=== PATIENT | female | born 1950 | race Caucasian/White ===

== ENCOUNTER 2018-03-21 11:31 | Emergency (ER) | payer OTHER, BC ==
[2018-03-21 12:42] LABS: Absolute Lymphocytes (CBC) 1.9 K/uL (0.7-4.9); Absolute Monocytes 0.6 K/uL (0.1-1.3); Absolute Neutrophil 5.1 K/uL (1.8-8.0); Basophils % 1.1 % (0-1.3); Eosinophils % 2.3 % (0-4.4); Hematocrit 34.2 % (36.0-45.0); Lymphocytes % 24.5 % (15.3-44.8); MCH 28.6 pg (27.0-35.0); MPV 8.5 fL (7.6-11.3); Monocytes % 7.4 % (3.3-12.3); RBC Red Blood Cell Count 4.08 M/uL (3.86-4.86)
[2018-03-21 12:43] LABS: Urine Blood NEGATIVE (NEG); Urine Glucose NEGATIVE (NEG); Urine Protein NEGATIVE (NEG); Urine pH 6.5 (5.0-7.0)
[2018-03-21 12:46] LABS: Protime INR 0.97
[2018-03-21 13:09] LABS: ALT/SGPT 14 U/L (12-78); AST/SGOT 9 U/L (15-37); Albumin 3.2 g/dL (3.4-5.0); Alkaline Phosphatase 67 U/L (45-117); BUN Blood Urea Nitrogen 22 mg/dL (7-18); Bicarbonate 26 mmol/L (21-32); Bilirubin Direct 0.1 mg/dL (0-0.2); Bilirubin Total 0.4 mg/dL (0.2-1.0); CKMB Creatine Kinase MB < 1.0 ng/mL (0.3-3.6); Creatine Phosphokinase 41 U/L (26-192); Glucose Level 116 mg/dL (74-106); Magnesium 1.8 mg/dL (1.8-2.4); NT PRO-BNP 562 pg/mL (<125); Potassium 3.4 mmol/L (3.5-5.1); Protein, Total 6.3 g/dL (6.4-8.2); Sodium Level 141 mmol/L (136-145)
--- NOTE | 2018-03-21 14:04 | RAD REPORT ---
EXAM DESCRIPTION: VAS - Extrem Venous W Compress Gigi - 03/21/2018 1:35 pm CLINICAL HISTORY: Bilateral lower extremity pain COMPARISON: None. TECHNIQUE: Real-time sonographic evaluation of the bilateral lower extremity deep venous systems was performed. FINDINGS: Normal compressibility, flow augmentation, phasic flow and spontaneous flow are identified in the bilateral lower extremity common femoral, superficial femoral, popliteal and posterior tibial veins. No intraluminal filling defects seen. A 3 centimeter x 2.4 centimeter popliteal fossa cyst no radha on the left. IMPRESSION: No DVT in either lower extremity. Left popliteal fossa cyst 3 cm in size.
--- NOTE | 2018-03-21 14:05 | RAD REPORT ---
EXAM DESCRIPTION: RAD - Chest Single View - 03/21/2018 1:12 pm CLINICAL HISTORY: Chest pain and pressure, shortness of breath COMPARISON: None. TECHNIQUE: AP portable chest image was obtained 1309 hours . FINDINGS: Lungs are clear. Heart and vasculature are normal. No measurable pleural effusion and no p neumothorax. No gross bony abnormality seen. No acute aortic findings suspected. IMPRESSION: No acute cardiopulmonary process.
[2018-03-21] MEDS ORDERED: ONDANSETRON 4 MG/2 ML VIAL ONE (14:14)
[2018-03-21] MEDS ORDERED: MORPHINE 4 MG/ML SYR ONE (14:14)
--- NOTE | 2018-03-21 15:15 | EKG ---
Test Date: 2018-03-21 Test Time: 12:15:22 Material Controller: EAMON MEASUREMENT RESULTS: Intervals: Rate: 76 WA: 196 QRSD: 80 QT: 402 QTc: 452 Benton: P: 34 WA: 196 QRS: 67 T: 72 INTERPRETIVE STATEMENTS: Normal sinus rhythm Nonspecific ST abnormality Abnormal ECG No previous ECG available for comparison Electronically Signed On 03-21-18 15:14:23 CDT by Blake Vizcarra
--- NOTE | 2018-03-21 16:25 | ER ---
Nurse's Notes [facility] Name: Jami Chow Age: 67 yrs Sex: Female : 1950 Arrival Date: 03/21/2018 Time: 11:32 Bed 19 Private MD: Out, [facility] Diagnosis: Chest pain, unspecified;Edema, unspecified Presentation: 03/21 11:37 Presenting complaint: Patient states: Swelling to her feet since yesterday, patient aj1 states that she has never had problems with her feet swelling in the past. Reports feeling pressure in her chest. Denies SOB. Denies palpitations, dizziness. She checked her blood pressure at home and it was higher than usual for her. She is also complaining of joint pain all over her body. Transition of care: patient was not received from another setting of care. Onset of symptoms was March 20, 2018. Risk Assessment: Do you want to hurt yourself or someone else? Patient reports no desire to harm self or others. Initial Sepsis Screen: Does the patient meet any 2 criteria? No. Patient's initial sepsis screen is negative. Does the patient have a suspected source of infection? No. Patient's initial sepsis screen is negative. Care prior to arrival: None. 11:37 Method Of Arrival: Ambulatory aj1 11:37 Acuity: ALLYSSA 3 aj1 Triage Assessment: 11:42 General: Appears in no apparent distress. comfortable, Behavior is calm, cooperative, aj1 appropriate for age. Pain: Complains of pain in chest Pain does not radiate. Pain currently is 4 out of 10 on a pain scale. Quality of pain is described as pressure. Neuro: Level of Consciousness is awake, alert, obeys commands. Cardiovascular: Reports chest pain, Patient's skin is warm and dry. Respiratory: Airway is patent Respiratory effort is even, unlabored, Respiratory pattern is regular, symmetrical. 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 - Social history:: Smoking status: Patient/guardian denies using tobacco. - Ebola Screening: : Patient denies travel to an Ebola-affected area in the 21 days before illness onset. Screenin:31 Abuse screen: Denies threats or abuse. Nutritional screening: No deficits noted. em Tuberculosis screening: No symptoms or risk factors identified. Fall Risk None identified. Assessment: 12:00 General: Appears in no apparent distress. comfortable, Behavior is cooperative, em anxious. Pain: Complains of pain in chest Pain currently is 3 out of 10 on a pain scale. Neuro: Level of Consciousness is awake, alert, obeys commands, Oriented to person, place, time, situation. Cardiovascular: Reports chest pain, nausea, shortness of breath, Heart tones S1 S2 present Capillary refill < 3 seconds Patient's skin is warm and dry. Rhythm is regular. Respiratory: Airway is patent Respiratory effort is even, unlabored, Respiratory pattern is regular, symmetrical. GI: Abdomen is round non-distended, Reports nausea. : No signs and/or symptoms were reported regarding the genitourinary system. EENT: No signs and/or symptoms were reported regarding the EENT system. Derm: Skin is intact, Skin is pink, warm \T\ dry. Musculoskeletal: Range of motion: intact in all extremities. 12:05 Reassessment: I agree with previous assessment. 13:05 Reassessment: Patient appears in no apparent distress at this time. Patient and/or em family updated on plan of care and expected duration. Pain level reassessed. Patient is alert, oriented x 3, equal unlabored respirations, skin warm/dry/pink. 14:00 Reassessment: Patient appears in no apparent distress at this time. Patient and/or em family updated on plan of care and expected duration. Pain level reassessed. Patient is alert, oriented x 3, equal unlabored respirations, skin warm/dry/pink. Patient states feeling better. 15:07 Reassessment: Patient appears in no apparent distress at this time. Patient and/or em family updated on plan of care and expected duration. Pain level reassessed. Patient is alert, oriented x 3, equal unlabored respirations, skin warm/dry/pink. Patient states feeling better. Patient states symptoms have improved. 16:24 Reassessment: Patient appears in no apparent distress at this time. Patient and/or em family updated on plan of care and expected duration. Pain level reassessed. Patient is alert, oriented x 3, equal unlabored respirations, skin warm/dry/pink. currently denies CP, N/V Patient states symptoms have improved. Vital Signs: 11:42 BP 146 / 88; Pulse 87; Resp 18; Temp 98.3(O); Pulse Ox 97% on R/A; Weight 68.04 kg (R); aj1 Height 5 ft. 6 in. (167.64 cm) (R); Pain 3/10; 12:34 BP 122 / 64; Pulse 73; Resp 18; Pulse Ox 98% on R/A; Pain 2/10; em 14:01 BP 146 / 68; Pulse 68; Resp 18; Pulse Ox 98% on R/A; Pain 3/10; em 15:00 BP 138 / 67; Pulse 71; Resp 18; Pulse Ox 97% on R/A; Pain 0/10; em 16:00 BP 144 / 71; Pulse 71; Resp 17; Pulse Ox 99% on R/A; em 16:43 BP 140 / 68; Pulse 67; Resp 19; Pulse Ox 99% on R/A; Pain 0/10; em 11:42 Body Mass Index 24.21 (68.04 kg, 167.64 cm) aj1 ED Course: 11:32 Patient arrived in ED. sb2 11:33 Out, [facility] is Private Physician. sb2 11:40 Triage completed. aj1 11:42 Arm band placed on Patient placed in an exam room. aj1 11:45 John Laguna LVN is Primary Nurse. em 11:46 Vick Menendez NP is PHCP. pm1 11:46 Nicko Sorenson MD is Attending Physician. pm1 12:30 Initial lab(s) drawn, by me, sent to lab. Inserted saline lock: 20 gauge in right em forearm, using aseptic technique. Blood collected. 12:31 Patient has correct armband on for positive identification. Bed in low position. Call em light in reach. 12:31 No provider procedures requiring assistance completed. em 13:12 XRAY Chest (1 view) In Process Unspecified. EDMS 13:35 Extrem Venous W Compression Gigi US In Process Unspecified. EDMS 13:35 Ultrasound completed. Patient tolerated well. sg3 16:43 IV discontinued, intact, bleeding controlled, No redness/swelling at site. Pressure em dressing applied. Administered Medications: 14:16 Drug: morphine 4 mg Route: IVP; Site: right forearm; hb 15:00 Follow up: Response: No adverse reaction; Pain is decreased em 14:16 Drug: Zofran 4 mg Route: IVP; Site: right forearm; hb 15:56 Follow up: Response: No adverse reaction; Nausea is decreased em Outcome: 16:24 Discharge ordered by MD. pm1 16:43 Discharged to home ambulatory. em 16:43 Condition: good 16:43 Discharge instructions given to patient, Instructed on discharge instructions, follow up and referral plans. Demonstrated understanding of instructions, follow-up care. 16:52 Patient left the ED. em Signatures: Dispatcher [employer] Debora Vee RN RN aj1 John Laguna, SUPERVISOR PIPE MANUFACTURE SUPERVISOR PIPE MANUFACTURE em Vick Menendez, GRID OPERATOR GRID OPERATOR pm1 Kandis Acosta RN RN Tatiana Donahue sg3 Angela Sanchez sb2
--- NOTE | 2018-03-21 16:25 | EDPHYS ---
Physician Documentation [facility] Name: Jami hCow Age: 67 yrs Sex: Female : 1950 Arrival Date: 03/21/2018 Time: 11:32 Bed 19 Private MD: Out, [facility] ED Physician Nicko Sorenson HPI: 03/21 13:00 This 67 yrs old Female presents to ER via Ambulatory with complaints of Blood pm1 Pressure Problem. 13:00 The patient or guardian reports chest pain that is located primarily in the mid-sternal pm1 area. Onset: yesterday. The pain does not radiate. Associated signs and symptoms: Pertinent negatives: abdominal pain, cough, nausea, shortness of breath, vomiting. The chest pain is described as sharp. Duration: The patient or guardian reports a single episode, that is now resolved. Modifying factors: The symptoms are alleviated by nothing. the symptoms are aggravated by nothing. Severity of pain: in the emergency department the pain chest pain is resolved but patient has chronic pain from fibromyalgia. The patient has not recently seen a physician. 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 - Social history:: Smoking status: Patient/guardian denies using tobacco. - Ebola Screening: : Patient denies travel to an Ebola-affected area in the 21 days before illness onset. ROS: 13:00 Constitutional: Negative for fever, chills, and weight loss, Eyes: Negative for injury, pm1 pain, redness, and discharge, ENT: Negative for injury, pain, and discharge, Neck: Negative for injury, pain, and swelling. 13:00 Respiratory: Negative for shortness of breath, cough, wheezing, and pleuritic chest pain, Abdomen/GI: Negative for abdominal pain, nausea, vomiting, diarrhea, and constipation, Back: Negative for injury and pain, : Negative for injury, bleeding, discharge, and swelling, MS/Extremity: Negative for injury and deformity, Skin: Negative for injury, rash, and discoloration, Neuro: Negative for headache, weakness, numbness, tingling, and seizure. 13:00 Cardiovascular: Positive for chest pain, Negative for edema, orthopnea, palpitations, paroxysmal nocturnal dyspnea. Exam: 13:00 Constitutional: This is a well developed, well nourished patient who is awake, alert, pm1 and in no acute distress. Head/Face: Normocephalic, atraumatic. Eyes: Pupils equal round and reactive to light, extra-ocular motions intact. Lids and lashes normal. Conjunctiva and sclera are non-icteric and not injected. Cornea within normal limits. Periorbital areas with no swelling, redness, or edema. ENT: Nares patent. No nasal discharge, no septal abnormalities noted. Tympanic membranes are normal and external auditory canals are clear. Oropharynx with no redness, swelling, or masses, exudates, or evidence of obstruction, uvula midline. Mucous membranes moist. Neck: Trachea midline, no thyromegaly or masses palpated, and no cervical lymphadenopathy. Supple, full range of motion without nuchal rigidity, or vertebral point tenderness. No Meningismus. 13:00 Cardiovascular: Regular rate and rhythm with a normal S1 and S2. No gallops, murmurs, or rubs. Normal PMI, no JVD. No pulse deficits. Respiratory: Lungs have equal breath sounds bilaterally, clear to auscultation and percussion. No rales, rhonchi or wheezes noted. No increased work of breathing, no retractions or nasal flaring. Abdomen/GI: Soft, non-tender, with normal bowel sounds. No distension or tympany. No guarding or rebound. No evidence of tenderness throughout. Back: No spinal tenderness. No costovertebral tenderness. Full range of motion. Skin: Warm, dry with normal turgor. Normal color with no rashes, no lesions, and no evidence of cellulitis. MS/ Extremity: Pulses equal, no cyanosis. Neurovascular intact. Full, normal range of motion. 13:00 Chest/axilla: Inspection: normal, Palpation: crepitus, is not appreciated, tenderness, of the mid-sternal area, that totally reproduces the patient's complaints. 13:00 Neuro: Orientation: is normal, Motor: is normal, moves all fours. Vital Signs: 11:42 BP 146 / 88; Pulse 87; Resp 18; Temp 98.3(O); Pulse Ox 97% on R/A; Weight 68.04 kg (R); aj1 Height 5 ft. 6 in. (167.64 cm) (R); Pain 3/10; 12:34 BP 122 / 64; Pulse 73; Resp 18; Pulse Ox 98% on R/A; Pain 2/10; em 14:01 BP 146 / 68; Pulse 68; Resp 18; Pulse Ox 98% on R/A; Pain 3/10; em 15:00 BP 138 / 67; Pulse 71; Resp 18; Pulse Ox 97% on R/A; Pain 0/10; em 16:00 BP 144 / 71; Pulse 71; Resp 17; Pulse Ox 99% on R/A; em 16:43 BP 140 / 68; Pulse 67; Resp 19; Pulse Ox 99% on R/A; Pain 0/10; em 11:42 Body Mass Index 24.21 (68.04 kg, 167.64 cm) aj1 MDM: 11:46 Patient medically screened. pm1 16:19 Data reviewed: vital signs. Data interpreted: Pulse oximetry: on room air is 98 %. pm1 Interpretation: normal. Counseling: I had a detailed discussion with the patient and/or guardian regarding: the historical points, exam findings, and any diagnostic results supporting the discharge/admit diagnosis, lab results, radiology results, the need for outpatient follow up, to return to the emergency department if symptoms worsen or persist or if there are any questions or concerns that arise at home. 16:21 ED course: heart score = 2 due to age. ED course: Patient chest pain free with onset of pm1 chest pain yesterday. 2 negative troponin greater than 4 hours apart. Heart score = 2 due to age. Will discharge patient home to follow up with PCP. 03/21 12:04 Order name: Basic Metabolic Panel; Complete Time: 13:09 pm1 03/21 12:04 Order name: CBC with Diff; Complete Time: 13:09 pm1 03/21 12:04 Order name: Ckmb; Complete Time: 13: pm1 03/21 12:04 Order name: CPK; Complete Time: 13: pm1 03/21 12:04 Order name: LFT's; Complete Time: 13:09 pm1 03/21 12:04 Order name: Magnesium; Complete Time: 13:09 pm1 03/21 12:04 Order name: NT PRO-BNP; Complete Time: 13:09 pm1 03/21 12:04 Order name: PT-INR; Complete Time: 13:09 pm1 03/21 12:04 Order name: Ptt, Activated; Complete Time: 13:09 pm1 03/21 12:04 Order name: Troponin (emerg Dept Use Only); Complete Time: 13:09 pm1 03/21 12:04 Order name: XRAY Chest (1 view); Complete Time: 14:06 pm1 03/21 12:05 Order name: Extrem Venous W Compression Gigi US; Complete Time: 14:05 pm1 03/21 12:07 Order name: Urine Dipstick--Ancillary (enter results); Complete Time: 13:09 eb 03/21 15:29 Order name: Troponin (emerg Dept Use Only); Complete Time: 16:18 pm1 03/21 12:04 Order name: EKG; Complete Time: 12:04 pm1 03/21 12:04 Order name: Cardiac monitoring; Complete Time: 12:33 pm1 03/21 12:04 Order name: EKG - Nurse/Tech; Complete Time: 12:33 pm1 03/21 12:04 Order name: IV Saline Lock; Complete Time: 12:33 pm1 03/21 12:04 Order name: Labs collected and sent; Complete Time: 12:33 pm1 03/21 12:04 Order name: O2 Per Protocol; Complete Time: 12:33 pm1 03/21 12:04 Order name: O2 Sat Monitoring; Complete Time: 12:33 pm1 03/21 12:04 Order name: Urine Dipstick-Ancillary (obtain specimen); Complete Time: 12:33 pm1 Administered Medications: 14:16 Drug: morphine 4 mg Route: IVP; Site: right forearm; hb 15:00 Follow up: Response: No adverse reaction; Pain is decreased em 14:16 Drug: Zofran 4 mg Route: IVP; Site: right forearm; hb 15:56 Follow up: Response: No adverse reaction; Nausea is decreased em Disposition: 17:54 Co-signature as Attending Physician, Nicko Sorenson MD. rn Disposition: 03/21/18 16:24 Discharged to Home. Impression: Chest pain, unspecified, Edema, unspecified. - Condition is Stable. - Discharge Instructions: Nonspecific Chest Pain, Edema. - Medication Reconciliation Form, Thank You Letter form. - Follow up: Emergency Department; When: As needed; Reason: Worsening of condition. Follow up: Private Physician; When: 2 - 3 days; Reason: Recheck today's complaints, Continuance of care, Re-evaluation by your physician. - Problem is new. - Symptoms have improved. Signatures: Dispatcher [employer] EDMS Debora Anderson RN RN aj1 John Laguna, DRY CELL BATTERY ASSEMBLER DRY CELL BATTERY ASSEMBLER em Nicko Sorenson MD MD rn Vick Menendez, COMBAT SYSTEMS OPERATOR [employer] COMBAT SYSTEMS OPERATOR [employer] pm1 Kandis Acosta RN RN Corrections: (The following items were deleted from the chart) 16:52 16:24 03/21/2018 16:24 Discharged to Home. Impression: Chest pain, unspecified; Edema, em unspecified. Condition is Stable. Forms are Medication Reconciliation Form, Thank You Letter, Antibiotic Education, Prescription Opioid Use. Follow up: Emergency Department; When: As needed; Reason: Worsening of condition. Follow up: Private Physician; When: 2 - 3 days; Reason: Recheck today's complaints, Continuance of care, Re-evaluation by your physician. Problem is new. Symptoms have improved. pm1
== END 2018-03-21 16:52 | disposition home or self-care (01) ==
LOC: ER 11:31
DX: R60.9 Edema, unspecified (principal); I10 Essential (primary) hypertension; E78.5 Hyperlipidemia, unspecified; M79.7 Fibromyalgia; Z79.82 Long term (current) use of aspirin
CPT/HCPCS: 36415; 71045; 80048; 80076; 81003; 82550; 82553; 83735; 83880; 84484 ×2; 85025; 85610; 85730; 93005; 93970; J2405; 96374; 96375; 99284

== ENCOUNTER 2018-06-13 09:43 | Emergency (ER) | payer OTHER, BC ==
[2018-06-13] MEDS ORDERED: METHYLPREDNISOLONE 125 MG INJ ONE (10:40)
[2018-06-13] MEDS ORDERED: MORPHINE 4 MG/ML SYR ONE (10:40)
[2018-06-13] MEDS ORDERED: FAMOTIDINE 20 MG/2 ML VIAL IV ONE (10:40)
[2018-06-13] MEDS ORDERED: ONDANSETRON 4 MG/2 ML VIAL ONE (10:40)
--- NOTE | 2018-06-13 12:09 | ER ---
Nurse's Notes [facility] Name: Jami Chow Age: 68 yrs Sex: Female : 1950 Arrival Date: 06/13/2018 Time: 09:45 Bed 5 Private MD: Diagnosis: Aarthralgias Presentation: 06/13 09:50 Presenting complaint: Patient states: Fibromyalgia flare up x 3 days that has gotten ss worse. Pt states, "I just don't want it to get to a full blown fare up". Pt c/o pain "all over", mostly in joints. Transition of care: patient was not received from another setting of care. Onset of symptoms was June 10, 2018. Risk Assessment: Do you want to hurt yourself or someone else? Patient reports no desire to harm self or others. Initial Sepsis Screen: Does the patient meet any 2 criteria? No. Patient's initial sepsis screen is negative. Does the patient have a suspected source of infection? No. Patient's initial sepsis screen is negative. Care prior to arrival: None. 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 - Social history:: Smoking status: Patient/guardian denies using tobacco. - Ebola Screening: : Patient denies exposure to infectious person Patient denies travel to an Ebola-affected area in the 21 days before illness onset. Screenin:06 Abuse screen: Denies threats or abuse. Nutritional screening: No deficits noted. tw2 Tuberculosis screening: No symptoms or risk factors identified. Fall Risk None identified. Assessment: 10:06 General: Appears in no apparent distress. uncomfortable, Behavior is calm, cooperative, tw2 appropriate for age. Pain: Complains of pain in "all over". Neuro: Level of Consciousness is awake, alert, obeys commands, Oriented to person, place, time, situation. Cardiovascular: Denies chest pain, syncope, Patient's skin is warm and dry. Respiratory: Airway is patent Respiratory effort is even, unlabored, Respiratory pattern is regular, symmetrical. GI: No signs and/or symptoms were reported involving the gastrointestinal system. : No signs and/or symptoms were reported regarding the genitourinary system. EENT: No signs and/or symptoms were reported regarding the EENT system. Derm: No signs and/or symptoms reported regarding the dermatologic system. Musculoskeletal: Circulation, motion, and sensation intact. Range of motion: intact in all extremities, Reports pain in "all over". 11:15 Reassessment: Patient appears in no apparent distress at this time. Patient and/or ph family updated on plan of care and expected duration. Pain level reassessed. Patient is alert, oriented x 3, equal unlabored respirations, skin warm/dry/pink. Pt resting quietly, reports pain has decreased to 6/10, VSS, will continue to monitor. 12:40 Reassessment: Patient appears in no apparent distress at this time. Patient and/or tw2 family updated on plan of care and expected duration. Pain level reassessed. Patient is alert, oriented x 3, equal unlabored respirations, skin warm/dry/pink. Vital Signs: 09:52 BP 137 / 85; Pulse 78; Resp 15; Temp 97.1(TE); Pulse Ox 98% on R/A; Weight 71.67 kg; ss Height 5 ft. 6 in. (167.64 cm); Pain 8/10; 11:20 BP 116 / 68; Pulse 64; Resp 16; Pulse Ox 95% ; Pain 6/10; ph 12:43 BP 126 / 72; Pulse 76; Resp 14; Pulse Ox 97% on R/A; Pain 0/10; ss 09:52 Body Mass Index 25.50 (71.67 kg, 167.64 cm) ED Course: 09:45 Patient arrived in ED. as 09:46 Bed in low position. tw2 09:48 Tony Jordan MD is Attending Physician. kdr 09:51 Triage completed. ss 09:52 Arm band placed on left wrist. ss 10:05 Mireille Danielson RN is Primary Nurse. tw2 10:50 Inserted saline lock: 22 gauge in right forearm, using aseptic technique. ph 12:42 No provider procedures requiring assistance completed. IV discontinued, intact, ss bleeding controlled, No redness/swelling at site. Pressure dressing applied. Administered Medications: 10:52 Drug: morphine 4 mg Route: IVP; Site: right forearm; ph 12:43 Follow up: Response: No adverse reaction; Pain is decreased ss 10:52 Drug: Zofran 4 mg Route: IVP; Site: right forearm; ph 12:43 Follow up: Response: No adverse reaction; Nausea is decreased ss 10:52 Drug: SOLU-Medrol 125 mg Route: IVP; Site: right forearm; ph 12:43 Follow up: Response: No adverse reaction; Pain is decreased ss 10:52 Drug: Pepcid 20 mg Route: IVP; Site: right forearm; ph 12:43 Follow up: Response: No adverse reaction ss Outcome: 12:08 Discharge ordered by . kdr 12:42 Discharged to home ambulatory. ss 12:42 Discharged to pt is awaiting for her ride in [email or web address] 12:42 Condition: good 12:42 Discharge instructions given to patient, Instructed on discharge instructions, follow up and referral plans. medication usage, Demonstrated understanding of instructions, follow-up care, medications, Prescriptions given X 1. 12:43 Patient left the ED. Signatures: Tony Jordan MD MD kdr Andra Goodwin Shelby, RN RN Elisa Reid RN RN Mireille Danielson RN RN tw2 Corrections: (The following items were deleted from the chart) 11:19 10:52 Pepcid 20 mg IVP in right antecubital ph ph 11:19 10:52 SOLU-Medrol 125 mg IVP in right antecubital ph ph 11:19 10:52 Zofran 4 mg IVP in right antecubital ph ph 11:20 10:52 morphine 4 mg IVP in right antecubital ph ph
--- NOTE | 2018-06-13 12:09 | EDPHYS ---
Physician Documentation [facility] Name: Jami Chow Age: 68 yrs Sex: Female : 1950 Arrival Date: 06/13/2018 Time: 09:45 Bed 5 Private MD: ED Physician Tony Jordan HPI: 06/13 10:19 This 68 yrs old Female presents to ER via Ambulatory with complaints of kdr Fibromyalgia. 10:19 The patient states that she was sweeping the floor yesterday and today she is hurting kdr all over in all of her joints including her back. Onset: The symptoms/episode began/occurred gradually, this morning. Severity of symptoms: At their worst the symptoms were moderate in the emergency department the symptoms are unchanged. The patient has experienced similar episodes in the past, a few times. The patient has not recently seen a physician. 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 - Social history:: Smoking status: Patient/guardian denies using tobacco. - Ebola Screening: : Patient denies exposure to infectious person Patient denies travel to an Ebola-affected area in the 21 days before illness onset. ROS: 10:19 Constitutional: Negative for fever, chills, and weight loss, Eyes: Negative for injury, kdr pain, redness, and discharge, ENT: Negative for injury, pain, and discharge, Neck: Negative for injury, pain, and swelling, Cardiovascular: Negative for chest pain, palpitations, and edema, Respiratory: Negative for shortness of breath, cough, wheezing, and pleuritic chest pain, Abdomen/GI: Negative for abdominal pain, nausea, vomiting, diarrhea, and constipation, : Negative for injury, bleeding, discharge, and swelling, Skin: Negative for injury, rash, and discoloration, Neuro: Negative for headache, weakness, numbness, tingling, and seizure activity. Psych: Negative for depression, anxiety, suicide ideation, homicidal ideation, and hallucinations, Allergy/Immunology: Negative for hives, rash, and allergies, Endocrine: Negative for neck swelling, polydipsia, polyuria, polyphagia, and marked weight changes, Hematologic/Lymphatic: Negative for swollen nodes, abnormal bleeding, and unusual bruising. 10:19 Back: Positive for Exam: 10:52 Constitutional: This is a well developed, well nourished patient who is awake, alert, kdr and in no acute distress. Head/Face: Normocephalic, atraumatic. Eyes: Pupils equal round and reactive to light, extra-ocular motions intact. Lids and lashes normal. Conjunctiva and sclera are non-icteric and not injected. Cornea within normal limits. Periorbital areas with no swelling, redness, or edema. Neck: Trachea midline, no thyromegaly or masses palpated, and no cervical lymphadenopathy. Supple, full range of motion without nuchal rigidity, or vertebral point tenderness. No Meningismus. Chest/axilla: Normal chest wall appearance and motion. Nontender with no deformity. No lesions are appreciated. Cardiovascular: Regular rate and rhythm with a normal S1 and S2. No gallops, murmurs, or rubs. Normal PMI, no JVD. No pulse deficits. Respiratory: Lungs have equal breath sounds bilaterally, clear to auscultation and percussion. No rales, rhonchi or wheezes noted. No increased work of breathing, no retractions or nasal flaring. Abdomen/GI: Soft, non-tender, with normal bowel sounds. No distension or tympany. No guarding or rebound. No evidence of tenderness throughout. Back: No spinal tenderness. No costovertebral tenderness. Full range of motion. Skin: Warm, dry with normal turgor. Normal color with no rashes, no lesions, and no evidence of cellulitis. MS/ Extremity: Pulses equal, no cyanosis. Neurovascular intact. Full, normal range of motion but painful joint globally Neuro: Awake and alert, GCS 15, oriented to person, place, time, and situation. Cranial nerves II-XII grossly intact. Motor strength 5/5 in all extremities. Sensory grossly intact. Cerebellar exam normal. Normal gait. Psych: Awake, alert, with orientation to person, place and time. Behavior, mood, and affect are within normal limits. Vital Signs: 09:52 BP 137 / 85; Pulse 78; Resp 15; Temp 97.1(TE); Pulse Ox 98% on R/A; Weight 71.67 kg; ss Height 5 ft. 6 in. (167.64 cm); Pain 8/10; 11:20 BP 116 / 68; Pulse 64; Resp 16; Pulse Ox 95% ; Pain 6/10; ph 12:43 BP 126 / 72; Pulse 76; Resp 14; Pulse Ox 97% on R/A; Pain 0/10; ss 09:52 Body Mass Index 25.50 (71.67 kg, 167.64 cm) ss MDM: 12:08 Patient medically screened. kdr 14:50 Data reviewed: vital signs, nurses notes, lab test result(s). Counseling: I had a kdr detailed discussion with the patient and/or guardian regarding: the historical points, exam findings, and any diagnostic results supporting the discharge/admit diagnosis, the need for outpatient follow up. Administered Medications: 10:52 Drug: morphine 4 mg Route: IVP; Site: right forearm; ph 12:43 Follow up: Response: No adverse reaction; Pain is decreased ss 10:52 Drug: Zofran 4 mg Route: IVP; Site: right forearm; ph 12:43 Follow up: Response: No adverse reaction; Nausea is decreased ss 10:52 Drug: SOLU-Medrol 125 mg Route: IVP; Site: right forearm; ph 12:43 Follow up: Response: No adverse reaction; Pain is decreased ss 10:52 Drug: Pepcid 20 mg Route: IVP; Site: right forearm; ph 12:43 Follow up: Response: No adverse reaction ss Disposition: 06/13/18 12:08 Discharged to Home. Impression: Aarthralgias. - Condition is Stable. - Discharge Instructions: Joint Pain, [id number]. - Prescriptions for Tylenol- Codeine #3 300-30 mg Oral Tablet - take 2 tablets by ORAL route every 4-6 hours As needed; 12 tablet. - Medication Reconciliation Form, Thank You Letter, Prescription Opioid Use form. - Follow up: Private Physician; When: 2 - 3 days; Reason: If symptoms return, Further diagnostic work-up, Recheck today's complaints, Continuance of care, Re-evaluation by your physician. - Problem is new. - Symptoms have improved. Signatures: Tony Jordan MD MD kdr Nika Mcallister RN RN ss Elisa Reid, RN RN Mireille Danielson RN RN tw2 Corrections: (The following items were deleted from the chart) 12:43 12:08 06/13/2018 12:08 Discharged to Home. Impression: Aarthralgias. Condition is ss Stable. Forms are Medication Reconciliation Form, Thank You Letter, Antibiotic Education, Prescription Opioid Use. Follow up: Private Physician; When: 2 - 3 days; Reason: If symptoms return, Further diagnostic work-up, Recheck today's complaints, Continuance of care, Re-evaluation by your physician. Problem is new. Symptoms have improved. kdr
== END 2018-06-13 12:43 | disposition home or self-care (01) ==
LOC: ER 09:43
DX: M25.50 Pain in unspecified joint (principal); I10 Essential (primary) hypertension; E78.5 Hyperlipidemia, unspecified; Z79.82 Long term (current) use of aspirin; Z88.5 Allergy status to narcotic agent
CPT/HCPCS: 96374; 96375; 99283; J2405; J2930

== ENCOUNTER 2019-01-15 16:36 | Emergency (ER) | payer OTHER, BC ==
--- OUTSIDE RECORDS SUMMARY | 2019-01-15 16:39 | XMS REPORT ---
:1950 [facility] Address [address] [place] [address] Care Team Providers Name Role Phone Unavailable Unavailable Unavailable Problems This patient has no known problems. Allergies, Adverse Reactions, Alerts This patient has no known allergies or adverse reactions. Medications This patient has no known medications.
[2019-01-15 17:36] LABS: Urine Blood NEGATIVE (NEG); Urine Glucose NEGATIVE (NEG); Urine Protein NEGATIVE (NEG)
[2019-01-15 18:12] LABS: Urine Bacteria 20-50 /HPF (<20); Urine Culture Reflex Order NOT NEEDED; Urine Mucus 3+ /HPF (NONE SEEN); Urine RBC <5 /HPF (NONE SEEN)
[2019-01-15 19:09] LABS: Absolute Lymphocytes (CBC) 2.7 K/uL (0.7-4.9); Absolute Monocytes 0.7 K/uL (0.1-1.3); Absolute Neutrophil 5.5 K/uL (1.8-8.0); Basophils % 1.2 % (0-1.3); Eosinophils % 3.3 % (0-4.4); Hematocrit 43.4 % (36.0-45.0); Lymphocytes % 28.8 % (15.3-44.8); Monocytes % 7.7 % (3.3-12.3); RBC Red Blood Cell Count 5.04 M/uL (3.86-4.86)
[2019-01-15] MEDS ORDERED: NA CHLORIDE 0.9% 500 ML ONE (19:18)
[2019-01-15 19:21] LABS: Albumin 3.8 g/dL (3.4-5.0); Bilirubin Direct 0.1 mg/dL (0-0.2); Bilirubin Total 0.7 mg/dL (0.2-1.0); Potassium 3.7 mmol/L (3.5-5.1); Protein, Total 7.3 g/dL (6.4-8.2)
--- NOTE | 2019-01-15 20:23 | RAD REPORT ---
EXAM DESCRIPTION: CT - Abdomen Pelvis W Contrast - 01/15/2019 8:02 pm CLINICAL HISTORY: Abdominal pain COMPARISON: none. TECHNIQUE: Computed axial tomography of the abdomen pelvis was obtained. 100 cc Isovue-300 was admin istered intravenously. Oral contrast was not requested which limits evaluation of bowel. All CT scans are performed using dose optimization technique as appropriate and may include automated exposure control or mA/KV adjustment according to patient size. FINDINGS: The liver, spleen, pancreas, adrenal and kidneys appear unremarkable. There is no evidence of diverticulitis. Hysterectomy. No adnexal mass Mild posterior subluxation L2 on L3 with subchondral sclerosis involving the vertebral endplates. Th e disc is thinned IMPRESSION: Mild posterior subluxation L2 on L3 with subchondral sclerosis involving the vertebral e ndplates. The disc is thinned . This could be secondary to degenerative process. Infection/inflammati on can also have this appearance and should be correlated clinically and with appropriate lab values.
--- NOTE | 2019-01-15 21:12 | EDPHYS ---
Physician Documentation [facility] Name: Jami Chow Age: 68 yrs Sex: Female : 1950 Arrival Date: 01/15/2019 Time: 16:39 Bed 25 Private MD: ED Physician Nicko Sorenson HPI: 01/15 18:45 This 68 yrs old Female presents to ER via Ambulatory with complaints of Low cp Back Pain, Weakness. 18:45 The patient presents with pain that is acute, with no known mechanism of injury. The cp symptoms are located in the low back. 18:45 The pain does not radiate. Onset: The symptoms/episode began/occurred 3 day(s) ago. cp Associated signs and symptoms: Pertinent negatives: abdominal pain, chest pain, constipation, fever, headache, incontinence, numbness, urinary retention, weakness. Severity of symptoms: in the emergency department the symptoms are unchanged, despite home interventions. 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 - Social history:: Smoking status: . - Ebola Screening: : Patient denies travel to an Ebola-affected area in the 21 days before illness onset. ROS: 18:50 Constitutional: Negative for body aches, chills, fever, poor PO intake. cp 18:50 Eyes: Negative for injury, pain, redness, and discharge. cp 18:50 Cardiovascular: Negative for chest pain, edema, palpitations. 18:50 Respiratory: Negative for cough, shortness of breath, wheezing. 18:50 Abdomen/GI: Negative for abdominal pain, nausea, vomiting, and diarrhea, black/tarry stool, rectal bleeding, bowel incontinence. 18:50 Back: Positive for pain at rest, pain with movement, of the low back area, Negative for injury or acute deformity. 18:50 : Negative for urinary symptoms, difficulty urinating, bladder incontinence. 18:50 Skin: Negative for cellulitis, rash. 18:50 Neuro: Negative for altered mental status, dizziness, gait disturbance, headache, numbness, weakness. 18:50 All other systems are negative. Exam: 19:00 Constitutional: The patient appears in no acute distress, alert, awake, non-toxic, well cp developed, well nourished, afebrile 19:00 Head/Face: Normocephalic, atraumatic. cp 19:00 Eyes: Periorbital structures: appear normal, Conjunctiva: normal, no exudate, no injection, Sclera: no appreciated abnormality, Lids and lashes: appear normal, bilaterally. 19:00 ENT: External ear(s): are unremarkable, Nose: is normal, Mouth: Lips: moist, Oral mucosa: moist, Posterior pharynx: is normal, airway is patent, no erythema, no exudate. 19:00 Neck: ROM/movement: is normal, is supple, without pain, no range of motions limitations, no nuchal rigidity. 19:00 Chest/axilla: Inspection: normal, Palpation: is normal, no crepitus, no tenderness. 19:00 Cardiovascular: Rate: normal, Rhythm: regular, Edema: is not appreciated, JVD: is not appreciated. 19:00 Respiratory: the patient does not display signs of respiratory distress, Respirations: normal, no use of accessory muscles, no retractions, no splinting, no tachypnea, labored breathing, is not present, Breath sounds: are clear throughout, no decreased breath sounds, no stridor, no wheezing. 19:00 Abdomen/GI: Inspection: abdomen appears normal, Bowel sounds: active, all quadrants, Palpation: abdomen is soft and non-tender, in all quadrants. 19:00 Back: pain, that is mild, of the low back area, ROM is normal, CVA tenderness, is absent, vertebral tenderness, is not appreciated. 19:00 Skin: no rash present. 19:00 Neuro: Motor: moves all fours, strength is normal, Sensation: is normal, Gait: is steady, at a normal pace, without difficulty, Deep tendon reflexes are 2+ (normal) in the right patellar, right Achilles, left patellar and left Achilles. Vital Signs: 16:48 BP 124 / 78; Pulse 110; Resp 19; Temp 98.8(TE); Pulse Ox 96% on R/A; Weight 70.31 kg; tw2 Height 5 ft. 6 in. (167.64 cm); Pain 7/10; 18:00 BP 104 / 54; Pulse 85; Resp 17 S; Temp 98.4(O); Pulse Ox 95% on R/A; ca1 19:00 BP 103 / 69; Pulse 73; Resp 17 S; Temp 98.5(O); Pulse Ox 95% on R/A; ca1 19:50 BP 126 / 81; Pulse 73; Resp 17 S; Pulse Ox 97% on R/A; ca1 20:55 BP 140 / 65; Pulse 67; Resp 17 S; Temp 98.2(O); Pulse Ox 98% on R/A; ca1 21:06 Temp 97.8(O); ag4 21:21 BP 120 / 58; Pulse 67; Resp 18 S; Pulse Ox 100% on R/A; ca1 16:48 Body Mass Index 25.02 (70.31 kg, 167.64 cm) tw2 MDM: 18:28 Patient medically screened. cp 20:00 Differential diagnosis: arthritis, strain, fracture, sciatica, contusion, Herniated cp disc osteomyelitis. 21:10 Data reviewed: vital signs, nurses notes, lab test result(s), radiologic studies, CT cp scan, and as a result, I will discharge patient. 21:10 Counseling: I had a detailed discussion with the patient and/or guardian regarding: the cp historical points, exam findings, and any diagnostic results supporting the discharge/admit diagnosis, lab results, radiology results, to return to the emergency department if symptoms worsen or persist or if there are any questions or concerns that arise at home. Response to treatment: the patient's symptoms have markedly improved after treatment, and as a result, I will discharge patient. ED course: VSS. Patient afebrile, no spinal tenderness noted on exam, WBC normal. Will discharge to home for continued monitoring. 01/15 17:32 Order name: Urine Dipstick--Ancillary (enter results); Complete Time: 18:10 eb 01/15 17:32 Order name: Urine Culture eb 01/15 17:32 Order name: Urine Microscopic Only; Complete Time: 18:22 eb 01/15 18:36 Order name: Basic Metabolic Panel cp 01/15 18:36 Order name: CBC with Diff cp 01/15 18:36 Order name: Creatinine for Radiology; Complete Time: 20:35 cp 01/15 18:36 Order name: Hepatic Function; Complete Time: 20:35 cp 01/15 18:36 Order name: Lipase; Complete Time: 20:35 cp 01/15 18:36 Order name: IV Saline Lock; Complete Time: 19:00 cp 01/15 18:36 Order name: Labs collected and sent; Complete Time: 18:59 cp 01/15 18:38 Order name: Basic Metabolic Panel; Complete Time: 20:35 EDMS 01/15 21:08 Interpretation: Normal except: GLUC 120; BUN 21; GFR 44. cp 01/15 18:38 Order name: CBC with Automated Diff; Complete Time: 20:35 EDMS 01/15 19:06 Order name: CT Abd/Pelvis - IV Contrast Only; Complete Time: 20:35 cp 01/15 20:42 Order name: PO challenge; Complete Time: 20:43 cp Administered Medications: 19:00 Drug: NS 0.9% 500 ml Route: IV; Rate: bolus; Site: right forearm; ca1 20:00 Follow up: Response: No adverse reaction; IV Status: Completed infusion ca1 Point of Care Testing: Blood Glucose: 16:48 Blood Glucose: 112 mg/dL; tw2 Ranges: Critical Glucose Levels:Adult <50 mg/dl or >400 mg/dl <40 mg/dl or >180 mg/dl Disposition: 01/15/19 21:11 Discharged to Home. Impression: Urinary tract infection, site not specified, Low back pain. - Condition is Stable. - Discharge Instructions: Back Pain, Adult, Urinary Tract Infection, Adult, Back Exercises, [id number]. - Prescriptions for Augmentin 875- 125 mg Oral Tablet - take 1 tablet by ORAL route every 12 hours for 10 days; 20 tablet. Cyclobenzaprine 10 mg Oral Tablet - take 1 tablet by ORAL route every 8 hours As needed; 15 tablet. - Medication Reconciliation Form, Thank You Letter, Antibiotic Education, Prescription Opioid Use form. - Follow up: Private Physician; When: 2 - 3 days; Reason: Recheck today's complaints. - Problem is new. - Symptoms have improved. Addendum: 01/18/2019 19:02 Co-signature as Attending Physician, Nicko marion n Signatures: Dispatcher [employer] EDMS Opal Joe, GREENHOUSE INSTRUCTOR-C GREENHOUSE INSTRUCTOR-Csnw Nicko Sorenson MD MD rn Antonio Wylie PA PA cp Wise, Tara RN RN tw2 Lorena Lucas RN RN ca1 Corrections: (The following items were deleted from the chart) 01/15 21:28 21:11 01/15/2019 21:11 Discharged to Home. Impression: Urinary tract infection, site ca1 not specified; Low back pain. Condition is Stable. Forms are Medication Reconciliation Form, Thank You Letter, Antibiotic Education, Prescription Opioid Use. Follow up: Private Physician; When: 2 - 3 days; Reason: Recheck today's complaints. Problem is new. Symptoms have improved. cp
--- NOTE | 2019-01-15 21:12 | ER ---
Nurse's Notes [facility] Name: Jami Chow Age: 68 yrs Sex: Female : 1950 Arrival Date: 01/15/2019 Time: 16:39 Bed 25 Private MD: Diagnosis: Urinary tract infection, site not specified;Low back pain Presentation: 01/15 16:43 Presenting complaint: Patient states: if i have 3 days off all i do is sleep, for tw2 months now this has been going on, and i feel that is not normal,i dont feel depressed, also my lower back started hurting Thursday, i dont know if its my kidneys, i am diabetic and when i sleep i dont eat or drink i just sleep, i could dehydrated or doing damage or just what is going on with me, Dr. Abbie Murphy is my doctor, i saw her about 4 mths ago and these issues were andrei starting around that time but it wasn't as near as bad as it is now. Transition of care: patient was not received from another setting of care. 16:43 Method Of Arrival: Ambulatory tw2 16:51 Onset of symptoms was January 15, 2019. Risk Assessment: Do you want to hurt yourself or tw2 someone else? Patient reports no desire to harm self or others. Initial Sepsis Screen: Does the patient meet any 2 criteria? No. Patient's initial sepsis screen is negative. Does the patient have a suspected source of infection? No. Patient's initial sepsis screen is negative. Care prior to arrival: None. 16:51 Acuity: ALLYSSA 3 tw2 Triage Assessment: 16:49 General: Appears in no apparent distress. Behavior is anxious. Pain: Complains of pain tw2 in left low back, left mid back, right mid back and right low back. Musculoskeletal: Reports pain in left low back, left mid back, right mid back and right low back. 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 - Social history:: Smoking status: . - Ebola Screening: : Patient denies travel to an Ebola-affected area in the 21 days before illness onset. Screenin:05 Abuse screen: Denies threats or abuse. Denies injuries from another. Nutritional ca1 screening: No deficits noted. Tuberculosis screening: No symptoms or risk factors identified. Fall Risk None identified. Assessment: 17:05 General: Appears in no apparent distress. comfortable, Behavior is calm, cooperative, ca1 appropriate for age. General: Reports sleeping for days. Pain: Complains of pain in back and right low back and right mid back and left mid back and left low back Pain does not radiate. Pain currently is 7 out of 10 on a pain scale. Pain began 2-3 days ago. Neuro: Level of Consciousness is awake, alert, obeys commands, Oriented to person, place, time, situation. Cardiovascular: Heart tones S1 S2 present Capillary refill < 3 seconds Patient's skin is warm and dry. Respiratory: Airway is patent Respiratory effort is even, unlabored, Respiratory pattern is regular, symmetrical, Breath sounds are clear bilaterally. GI: Abdomen is flat, non-distended, Bowel sounds present X 4 quads. Abd is soft and non tender X 4 quads. : No deficits noted. No signs and/or symptoms were reported regarding the genitourinary system. EENT: No deficits noted. No signs and/or symptoms were reported regarding the EENT system. Derm: Skin is intact, is healthy with good turgor, Skin is pink, warm \T\ dry. Musculoskeletal: Circulation, motion, and sensation intact. Capillary refill < 3 seconds, Range of motion: intact in all extremities. 18:00 Reassessment: Patient appears in no apparent distress at this time. Patient is alert, ca1 oriented x 3, equal unlabored respirations, skin warm/dry/pink. 19:07 Reassessment: Patient appears in no apparent distress at this time. Patient and/or ca1 family updated on plan of care and expected duration. Pain level reassessed. Patient is alert, oriented x 3, equal unlabored respirations, skin warm/dry/pink. 19:50 Reassessment: Patient appears in no apparent distress at this time. Patient is alert, ca1 oriented x 3, equal unlabored respirations, skin warm/dry/pink. Pt to CT scan. 20:10 Reassessment: Patient appears in no apparent distress at this time. PT back from CT ca1 scan. 20:48 Reassessment: Patient appears in no apparent distress at this time. Patient is alert, ca1 oriented x 3, equal unlabored respirations, skin warm/dry/pink. Water and Juice given. Pt tolerated well. 21:21 Reassessment: Patient appears in no apparent distress at this time. Patient is alert, ca1 oriented x 3, equal unlabored respirations, skin warm/dry/pink. No reports of N and V at this time. Vital Signs: 16:48 BP 124 / 78; Pulse 110; Resp 19; Temp 98.8(TE); Pulse Ox 96% on R/A; Weight 70.31 kg; tw2 Height 5 ft. 6 in. (167.64 cm); Pain 7/10; 18:00 BP 104 / 54; Pulse 85; Resp 17 S; Temp 98.4(O); Pulse Ox 95% on R/A; ca1 19:00 BP 103 / 69; Pulse 73; Resp 17 S; Temp 98.5(O); Pulse Ox 95% on R/A; ca1 19:50 BP 126 / 81; Pulse 73; Resp 17 S; Pulse Ox 97% on R/A; ca1 20:55 BP 140 / 65; Pulse 67; Resp 17 S; Temp 98.2(O); Pulse Ox 98% on R/A; ca1 21:06 Temp 97.8(O); ag4 21:21 BP 120 / 58; Pulse 67; Resp 18 S; Pulse Ox 100% on R/A; ca1 16:48 Body Mass Index 25.02 (70.31 kg, 167.64 cm) tw2 ED Course: 16:39 Patient arrived in ED. rg4 16:49 Arm band placed on. tw2 16:51 Triage completed. tw2 17:00 Lorena Lucas, RN is Primary Nurse. ca1 17:05 Patient has correct armband on for positive identification. Placed in gown. Bed in low ca1 position. Call light in reach. Side rails up X 1. Pulse ox on. NIBP on. Warm blanket given. 17:05 No provider procedures requiring assistance completed. ca1 18:28 Antonio Wylie PA is PHCP. cp 18:28 Nicko Sorenson MD is Attending Physician. cp 19:02 Inserted saline lock: 22 gauge in right forearm, using aseptic technique. Blood ag collected. 19:02 Missed attempt(s): 22 gauge in left antecubital area. Bleeding controlled, band aid ag applied, catheter tip intact. 20:02 CT Abd/Pelvis - IV Contrast Only In Process Unspecified. EDMS 21:22 IV discontinued, intact, bleeding controlled, No redness/swelling at site. Pressure ca1 dressing applied. Administered Medications: 19:00 Drug: NS 0.9% 500 ml Route: IV; Rate: bolus; Site: right forearm; ca1 20:00 Follow up: Response: No adverse reaction; IV Status: Completed infusion ca1 Point of Care Testing: Blood Glucose: 16:48 Blood Glucose: 112 mg/dL; tw2 Ranges: Outcome: 21:11 Discharge ordered by . cp 21:22 Discharged to home ambulatory. ca1 21:22 Condition: stable 21:22 Discharge instructions given to patient, Instructed on discharge instructions, follow up and referral plans. medication usage, Demonstrated understanding of instructions, follow-up care, medications, Prescriptions given X 2. 21:28 Patient left the ED. ca1 Signatures: Dispatcher [employer] EDMS Christal Lebron Corey, PA PA cp Wise, Tara, RN RN tw2 Zofia Salazar rg4 Theron Chanel ag4 Lorena Lucas RN RN ca1
== END 2019-01-15 21:28 | disposition home or self-care (01) ==
LOC: ER 16:36
DX: N39.0 Urinary tract infection, site not specified (principal); I10 Essential (primary) hypertension; E78.5 Hyperlipidemia, unspecified; Z79.82 Long term (current) use of aspirin; Z88.5 Allergy status to narcotic agent
CPT/HCPCS: 36415; 74177; 80048; 80076; 81003; 81015; 82962; 83690; 85025; 87086; 87088; 96360; 99284